=== PATIENT | female | born 1975 | race Caucasian/White ===

== ENCOUNTER 2017-06-08 13:03 | Emergency (ER) | payer MEDICAID ==
[~2017-06-08] VITALS: Ht 162.6 cm; Wt 77.0 kg
[~2017-06-08 13:03] MED LIST: INSNOV SQ
[2017-06-08 13:05] VITALS: BP 145/75
[2017-06-08 13:18] LABS: GLUCOSE,POINT OF CARE 317 MG/DL (70-110)
== END 2017-06-08 15:41 | disposition left against medical advice (07) ==
LOC: EMS 13:07
DX: R51 Headache (principal); E11.9 Type 2 diabetes mellitus without complications; V43.52XA Car driver injured in collision with other type car in traffic accident, initial encounter; Y93.89 Activity, other specified; Y92.89 Other specified places as the place of occurrence of the external cause; Y99.8 Other external cause status; Z53.21 Procedure and treatment not carried out due to patient leaving prior to being seen by health care provider
CPT/HCPCS: 82962